=== PATIENT | female | born 1965 | race African-American/Black ===

== ENCOUNTER 2018-09-04 08:22 | Emergency (ER) | payer OTHER ==
[~2018-09-04] VITALS: Ht 177.8 cm; Wt 79.4 kg
--- NOTE | 2018-09-04 08:35 | NUR ---
PT BIB FAMILY C/C LEFT KNEE PAIN, "POSSIBLE SPRAIN, CANNOT BEND" PER PT. PT REPORTS 5/10 PAIN. PT ON MONITOR IN BED 1 WITH FAMILY AT BEDSIDE. WILL CONTINUE TO MONITOR.
--- NOTE | 2018-09-04 08:37 | NUR ---
DR. SAUER AT BEDSIDE FOR EVAL.
[2018-09-04 08:38] VITALS: BP 141/90
--- NOTE | 2018-09-04 08:56 | NUR ---
PT REFUSED TO SIGN DISCHARGE PAPERWORK
== END 2018-09-04 09:01 | disposition home or self-care (01) ==
LOC: ER 08:22
DX: M25.562 Pain in left knee (principal); Z86.718 Personal history of other venous thrombosis and embolism
CPT/HCPCS: 99281; A4606; Z7502